=== PATIENT | female | born 1980 | race Caucasian/White ===

== ENCOUNTER 2021-08-30 17:21 | Emergency (ER) | payer MEDICAID ==
[~2021-08-30] VITALS: Ht 172.7 cm; Wt 69.0 kg
[2021-08-30] MEDS ORDERED: LIDOCAINE HCL/EPINEPHRINE 1%-EPI 1:100,000 20 ML VIAL INFIL ONE (17:45)
[2021-08-30] MEDS ORDERED: BACITRACIN ZINC OINT UDPKT TOP ONE (17:45)
[2021-08-30 19:03] LABS: BASOPHILS % 0.6 % (0.0-2.0); EOSINOPHILS % 0.9 % (0.0-5.0); HEMATOCRIT. 33.8 % (36.0-48.0); HEMOGLOBIN. 11.4 g/dL (12.0-16.0); LYMPHOCYTES % 9.9 % (20.0-50.0); MEAN CORPUSCULAR HEMOGLOBIN 30.5 pg (28.0-32.0); MEAN CORPUSCULAR VOLUME 90.3 fL (81.0-99.0); MEAN PLATELET VOLUME 9.1 fl (7.4-10.4); NEUTROPHILS % 82.6 % (40.0-76.0); PLATELET 263 x1000/uL (130-400); RED BLOOD CELL COUNT 3.74 mill/uL (4.2-5.4); RED CELL DISTRIBUTION WIDTH 13.6 % (11.6-14.6)
[2021-08-30 19:12] LABS: CHLORIDE 112 mEq/L (98-107)
[2021-08-30 19:14] LABS: HCG SCREEN NEGATIVE
[2021-08-30] MEDS ORDERED: KETOROLAC 15MG/ML VIAL IV ONE (20:30)
[2021-08-30] MEDS ORDERED: IBUP-2028 MT (21:17)
[2021-08-30 22:30] VITALS: BP 93/62
== END 2021-08-30 22:45 | disposition home or self-care (01) ==
LOC: ER 17:21 → EDBD 17:21 → ER 22:45
DX: S09.8XXA Other specified injuries of head, initial encounter (principal); R55 Syncope and collapse; D64.9 Anemia, unspecified; Y93.89 Activity, other specified; W01.0XXA Fall on same level from slipping, tripping and stumbling without subsequent striking against object, initial encounter; Y92.018 Other place in single-family (private) house as the place of occurrence of the external cause; S01.112A Laceration without foreign body of left eyelid and periocular area, initial encounter; V00.131A Fall from skateboard, initial encounter; Y93.51 Activity, roller skating (inline) and skateboarding; Y92.488 Other paved roadways as the place of occurrence of the external cause
CPT/HCPCS: 12013; 36415; 70450; 71045; 80053; 84703; 85025; 93005; 96374; 99285; J1885; J3490

== ENCOUNTER 2021-09-06 12:12 | Emergency (ER) | payer MEDICAID ==
[~2021-09-06 12:12] MED LIST: IBUP-2028 MT
== END 2021-09-06 13:16 | disposition left against medical advice (07) ==
LOC: ER 12:50
DX: Z53.21 Procedure and treatment not carried out due to patient leaving prior to being seen by health care provider (principal)

== ENCOUNTER 2024-08-11 20:46 | Emergency (ER) | payer SELFPAY ==
[~2024-08-11] VITALS: Ht 152.4 cm; Wt 59.0 kg
[2024-08-11 20:49] VITALS: O2SAT 100
[2024-08-11] MEDS: METOCLOPRAMIDE HCL 10MG TABLET PO ONE (21:52)
[2024-08-11] MEDS: ACETAMINOPHEN 325MG TABLET PO ONE (21:52)
[2024-08-11] MEDS: TETANUS, DIPHTHERIA, PERTUSSIS VAC/PF 0.5ML (>10YR OLD) IM ONE (22:44)
[2024-08-11] MEDS ORDERED: NAPR-1176 MT (23:04)
[2024-08-11] MEDS: BACITRACIN ZINC OINT UDPKT TOP ONE (23:09)
[2024-08-11] MEDS: LIDOCAINE HCL/PF 1% 10 MG/ML 5ML VIAL INFIL ONE (23:09)
[2024-08-11 23:14] VITALS: BP 114/87; PULSE 80; RESP 18; TEMP 36.7; O2SAT 100
== END 2024-08-11 23:25 | disposition home or self-care (01) ==
LOC: ER 20:46
DX: S01.81XA Laceration without foreign body of other part of head, initial encounter (principal); Z79.899 Other long term (current) drug therapy; Z79.1 Long term (current) use of non-steroidal anti-inflammatories (NSAID); W22.8XXA Striking against or struck by other objects, initial encounter; Y93.89 Activity, other specified; Y92.89 Other specified places as the place of occurrence of the external cause; Y99.8 Other external cause status
CPT/HCPCS: 81025; 90715; 12013; 90471; 99283; J8597; J2003; Z7610 ×2